=== PATIENT | female | born 1970 | race Caucasian/White ===

== ENCOUNTER → 2016-05-15 | Outpatient (CLI) | payer BC ==
[~2016-05-15] MED LIST: ASPI-390 PO; FLUT0.15 NAE; LRT5 PO; NAPR1TAB9 PO
--- NOTE | 2016-05-15 20:44 | DIAGNOSTIC IMAGING REPORT ---
PELVIC ULTRASOUND, TRANSABDOMINAL HISTORY: Generalized abdominal pain. Abnormal menstruation. COMPARISON: None. FINDINGS: Uterus: 9.8 x 4.4 x 6.2 cm. Within the right side of the uterus there is a 4.9 x 3.8 x 3.8 cm heterogeneous subserosal mass. This favors a fibroid. Endometrial stripe: 5 mm in thickness. Right ovary: There is a 3.4 cm exophytic cyst which appears to connect to the right ovary. Left ovary: Normal in size and demonstrates normal color flow. Miscellaneous:No pelvic free fluid. IMPRESSION: 1. Suboptimal examination as the patient deferred transvaginal scanning. 2. A 4.9 x 3.8 x 3.8 cm heterogeneous subserosal mass along the right side of the uterus. This favors a fibroid. 3. There appears to be 3.4 cm cyst within the right ovary which also abuts the right-sided fibroid. Recommend follow-up pelvic ultrasound in 6-8 weeks to ensure resolution. 4. Normal left ovary. Electronically signed by: Ariel Manzano M.D. 05/15/2016 8:43 PM Dictated Date/Time: 05/15/2016 8:38 PM
[2016-05-15 20:49] LABS: BASO % 0.4 %; BASO ABS # 0.04 K/uL (0-0.2); EOS % 1.1 %; HEMATOCRIT 39.1 % (37-47); IG% 0.2 %; LYMPH % 30.7 %; LYMPH ABS # 3.14 K/uL (1.2-3.4); MEAN CELL VOLUME 88.1 fL (80-100); MEAN CORPUSCULAR HEMOGLOBIN 31.1 pg (25-34); MEAN PLATELET VOLUME 9.4 fL (7.4-10.4); MONO % 8.3 %; NEUT % 59.3 %; PLATELET COUNT 203 K/uL (130-400); RED BLOOD COUNT 4.44 M/uL (4.2-5.4); WHITE BLOOD COUNT 10.22 K/uL (4.8-10.8)
[2016-05-15 20:55] LABS: URINE APPEARANCE CLEAR (CLEAR); URINE BILIRUBIN NEG (NEG); URINE COLOR YELLOW; URINE NITRITE NEG (NEG); URINE PH 7.5 (4.5-7.5); URINE SPECIFIC GRAVITY 1.012 (1.000-1.030); UROBILINOGEN NEG (NEG)
[2016-05-15 20:57] LABS: COMPLETE YES; MEAN CORPUSCULAR HGB CONC 35.3 g/dl (32-36)
[2016-05-15 21:00] LABS: MANUAL MICROSCOPIC REQUIRED? NO; REVIEW REQ? NO
[2016-05-15 21:15] LABS: BLOOD UREA NITROGEN 16 mg/dl (7-18); BUN/CREATININE RATIO 19.9 (10-20); CALCIUM 8.9 mg/dl (8.5-10.1); CARBON DIOXIDE 24 mmol/L (21-32); CHLORIDE 106 mmol/L (98-107); CREATININE 0.78 mg/dl (0.60-1.20); GLUCOSE 89 mg/dl (70-99); POTASSIUM 4.5 mmol/L (3.5-5.1); SODIUM 140 mmol/L (136-145)
--- NOTE | 2016-05-15 21:17 | DIAGNOSTIC IMAGING REPORT ---
APPENDIX ULTRASOUND HISTORY: Generalized abdominal PAIN, SWELLING, ABNORMAL MENSES COMPARISON: None. FINDINGS: Transabdominal scanning of the right lower quadrant was performed. The appendix was not identified. There are no fluid collections or masses within the right lower quadrant. IMPRESSION: The appendix was not identified. Electronically signed by: Ariel Manzano M.D. 05/15/2016 9:16 PM Dictated Date/Time: 05/15/2016 9:15 PM
[2016-05-15 21:25] LABS: RATIO 9.5 mcg/mg (0-30.0)
== END | disposition home or self-care (01) ==
LOC: C.ULTR 19:25
PROVIDERS: ATTEND Nurse Practitioner Family
DX: R10.31 Right lower quadrant pain (principal); N92.6 Irregular menstruation, unspecified; R60.9 Edema, unspecified; R19.09 Other intra-abdominal and pelvic swelling, mass and lump; N83.201 Unspecified ovarian cyst, right side

== ENCOUNTER 2016-10-14 22:29 | Emergency (ER) | payer BC ==
[~2016-10-14] VITALS: Ht 170.2 cm; Wt 92.1 kg
[~2016-10-14 22:29] MED LIST changes: -ASPI-390 PO; -FLUT0.15 NAE; -NAPR1TAB9 PO
[2016-10-14 22:32] VITALS: TEMP 36.7; Ht 170.2 cm; Wt 92.1 kg
[2016-10-14 22:51] VITALS: O2SAT 98
[2016-10-14] MEDS ORDERED: NAPR1TAB9 PO (22:59)
[2016-10-14] MEDS ORDERED: FLUT0.15 NAE (22:59)
[2016-10-14] MEDS ORDERED: ASPI-390 PO (22:59)
[2016-10-14 23:38] LABS: HEMATOCRIT 40.7 % (37-47); MEAN CELL VOLUME 89.8 fL (80-100); MEAN CORPUSCULAR HEMOGLOBIN 30.5 pg (25-34); MEAN CORPUSCULAR HGB CONC 33.9 g/dl (32-36); PLATELET COUNT 200 K/uL (130-400); RED BLOOD COUNT 4.53 M/uL (4.2-5.4); WHITE BLOOD COUNT 7.46 K/uL (4.8-10.8)
[2016-10-14] MEDS ORDERED: ASPIRIN 81 MG CHEW PO STA (23:44)
[2016-10-14 23:50] LABS: PROTHROMBIN TIME (PATIENT) 10.2 SECONDS (9.0-12.0)
[2016-10-15 00:05] LABS: ALT/SGPT 24 U/L (12-78); AST/SGOT 14 U/L (15-37); BLOOD UREA NITROGEN 13 mg/dl (7-18); BUN/CREATININE RATIO 12.6 (10-20); CALCIUM 8.5 mg/dl (8.5-10.1); CARBON DIOXIDE 28 mmol/L (21-32); CHLORIDE 108 mmol/L (98-107); GLUCOSE 106 mg/dl (70-99); POTASSIUM 3.7 mmol/L (3.5-5.1); SODIUM 142 mmol/L (136-145)
[2016-10-15 00:09] LABS: ALB/GLOB RATIO 1.2 (0.9-2); ALKALINE PHOSPHATASE 90 U/L (45-117)
[2016-10-15 02:14] VITALS: BP 120/76; PULSE 64; O2SAT 97
--- NOTE | 2016-10-15 02:25 | EMERGENCY ROOM VISIT NOTE ---
History Report prepared by Angella: Celeste Sierra Under the Supervision of: Dr. Kinjal Hobbs M.D. First contact with patient: 23:12 Chief Complaint: CHEST PAIN Stated Complaint: PAIN IN LEFT ARM, SHARP PAIN IN CHEST Nursing Triage Summary: Sharp pains retrosternal starting 2100 hours, left wrist/hand/arm started feeling numb. Denies dyspnea, nausea, dizziness. Chest pain is exacerbated with palpation, denies injury. Family cardiac history, no current personal cardiac history. History of Present Illness The patient is a 46 year old female who presents to the Emergency Room with complaints of persistent chest pain starting 2100 today. The patient was sitting on her couch petting her cat when she had a sudden pain in her chest. She then started having some numbness in her left arm down to her hands. She then had another sharp intense pain in her chest. She has never experienced this before. She currently feels a dull pressure in her chest. She denies any nausea or diaphoresis with the chest pain. She denies any new back pain. The pain did not worsen with exertion. She has a history of back pain for which she sees a chiropractor. Her last chiropractic appointment was 1 month ago. She has not taken any aspirin. Her father had a heart attack and CABG when he was 55. She denies any history of AL in her siblings or mother. She denies any history of blood clots or other medical issues. She traveled to [place] in August. She denies any hormone use or smoking. Source of History: patient Onset: 2099 today Position: chest Quality: sharp Timing: other (persistent) Associated Symptoms: + numbness, No diaphoresis, No nausea, No back pain Review of Systems See HPI for pertinent positives & negatives. A total of 10 systems reviewed and were otherwise negative. Past Medical & Surgical Medical Problems: (1) No chronic problems Family History Cancer Heart disease Hypertension Seizures Social History Smoking Status: Never Smoker Occupation Status: employed Current/Historical Medications Scheduled Esiwgpw-Rotywqvqohtvt-Iklcxars (Excedrin Migraine), 1 TAB PO PRN UD Fluticasone Propionate (Nasal) (Flonase Allergy Relief), 2 SPRAYS TSERING DAILY Scheduled PRN Naproxen (Aleve), 2 TAB PO DAILY PRN for Pain Allergies Coded Allergies: Miconazole (Verified Adverse Reaction, Severe, BURNING, 10/14/16) Physical Exam Vital Signs Date Time Temp Pulse Resp B/P (MAP) Pulse Ox O2 Delivery O2 Flow Rate FiO2 10/15/16 02:14 64 17 120/76 97 10/15/16 01:59 64 17 120/76 97 10/15/16 01:29 69 18 124/73 96 10/15/16 00:59 65 14 130/79 96 10/15/16 00:29 73 17 126/83 96 10/14/16 23:55 76 21 143/91 97 10/14/16 22:55 79 10/14/16 22:51 98 Room Air 10/14/16 22:51 98 Room Air 10/14/16 22:32 36.7 79 18 189/97 99 Room Air Physical Exam Vital signs reviewed. General: Well-appearing female, in no significant distress. HEENT: No scleral icterus, PERRLA, neck supple. Atraumatic. Cardiovascular: Regular rate and rhythm, no extra sounds. Pulmonary: Clear to auscultation bilaterally, normal work of breathing. Abdomen: Soft, nontender, nondistended, positive bowel sounds. Musculoskeletal: Atraumatic, no peripheral edema. Neurologic: Patient awake alert and oriented x 3, full strength in all 4 extremities. Cranial nerves 2 through 12 grossly intact. Skin: Warm, dry, no rash Medical Decision & Procedures ER Provider Diagnostic Interpretation: X-ray results as stated below per interpretation by me: Chest X-ray: Normal mediastinal silhouette, no pneumothorax, no focal infiltrate, no failure. Laboratory Results 10/14/16 23:15 10/14/16 23:15 Test 10/14/16 23:15 10/15/16 01:23 Red Blood Count 4.53 M/uL (4.2-5.4) Mean Corpuscular Volume 89.8 fL (80-100) Mean Corpuscular Hemoglobin 30.5 pg (25-34) Mean Corpuscular Hemoglobin Concent 33.9 g/dl (32-36) RDW Standard Deviation 42.0 fL (36.4-46.3) RDW Coefficient of Variation 12.8 % (11.5-14.5) Mean Platelet Volume 10.0 fL (7.4-10.4) Prothrombin Time 10.2 SECONDS (9.0-12.0) Prothromb Time International Ratio 1.0 (0.9-1.1) Activated Partial Thromboplast Time 27.2 SECONDS (21.0-31.0) Partial Thromboplastin Ratio 1.0 Anion Gap 6.0 mmol/L (3-11) Est Creatinine Clear Calc Drug Dose 81.9 ml/min Estimated GFR () 78.2 Estimated GFR (Non- 67.5 BUN/Creatinine Ratio 12.6 (10-20) Calcium Level 8.5 mg/dl (8.5-10.1) Total Bilirubin 0.3 mg/dl (0.2-1) Aspartate Amino Transf (AST/SGOT) 14 U/L (15-37) Alanine Aminotransferase (ALT/SGPT) 24 U/L (12-78) Alkaline Phosphatase 90 U/L (45-117) Total Creatine Kinase 69 U/L (26-192) Creatine Kinase MB < 0.5 ng/ml (0.5-3.6) Creatine Kinase MB Ratio (0-3.0) Total Protein 7.1 gm/dl (6.4-8.2) Albumin 3.9 gm/dl (3.4-5.0) Globulin 3.2 gm/dl (2.5-4.0) Albumin/Globulin Ratio 1.2 (0.9-2) Bedside Troponin I < 0.030 ng/ml (0-0.045) Laboratory results per my review. Medications Administered Medications (Trade) Dose Ordered Sig/Cathleen Route Start Time Stop Time Status Last Admin Dose Admin Aspirin (Aspirin Chew) 324 mg NOW STAT PO 10/14/16 23:44 10/14/16 23:45 DC 10/14/16 23:54 324 MG ECG Indication: chest pain Rate (beats per minute): 84 Rhythm: normal sinus Findings: no acute ischemic change, other (left atrial enlargement, likely previous anterior infarct) ED Course 2317: Past medical records reviewed. The patient was evaluated in room B4B. A complete history and physical examination was performed. 2344: Aspirin 324 mg PO. 0201: Upon reevaluation, the patient appeared to have improvement of her symptoms. I discussed findings with her. She verbalized agreement of the treatment plan. She was discharged home. Medical Decision Differential diagnosis: Acute coronary syndrome, pulmonary embolus, aortic dissection, musculoskeletal pain, pneumonia, pleural effusion, pneumothorax This patient was evaluated and appeared to be in no significant distress. Patient was given 324 mg of aspirin to chew. Chest x-ray reveals no focal findings. EKG reveals no evidence of acute ischemia. Patient's cardiac enzymes and d-dimer are normal. Troponin was repeated and is negative once again. The patient was informed of the findings. She was asked to follow-up with her PCP this week for reevaluation and likely further cardiac evaluation. She will return to the ER for worsening of symptoms or any medical concerns. Medication Reconcilliation Current Medication List: was personally reviewed by me Blood Pressure Screening Patient's blood pressure: Normal blood pressure Blood pressure disposition: Did not require urgent referral Impression Primary Impression: Chest pain radiating to arm Additional Impression: Substernal chest pain Scribe Attestation The scribe's documentation has been prepared under my direction and personally reviewed by me in its entirety. I confirm that the note above accurately reflects all work, treatment, procedures, and medical decision making performed by me. Departure Information Dispostion Home / Self-Care Referrals Leena Mark (PCP) Forms HOME CARE DOCUMENTATION FORM, IMPORTANT VISIT INFORMATION Patient Instructions My [facility] Additional Instructions Diagnosis: Chest pain Aspirin 81 mg daily. Continue your other medications as prescribed. Follow-up with your PCP within the next 2-3 days for reevaluation and consideration of further cardiac testing. Return to the ER for worsening of symptoms or any medical concerns. Problem Qualifiers
--- NOTE | 2016-10-15 06:37 | DIAGNOSTIC IMAGING REPORT ---
CHEST ONE VIEW PORTABLE HISTORY: 46 years-old Female acute chest pain COMPARISON: None available TECHNIQUE: Portable upright AP view of the chest FINDINGS: Cardiomediastinal and hilar silhouettes are within normal limits. No pneumothorax, pleural effusion or focal airspace consolidation. The bones are grossly intact. IMPRESSION: No acute cardiopulmonary process. The above report was generated using voice recognition software. It may contain grammatical, syntax or spelling errors. Electronically signed by: Rk Stover M.D. 10/15/2016 6:35 AM Dictated Date/Time: 10/15/2016 6:35 AM
== END 2016-10-15 02:16 | disposition home or self-care (01) ==
LOC: C.EDB 22:31
DX: R07.2 Precordial pain (principal); Z80.9 Family history of malignant neoplasm, unspecified; Z82.49 Family history of ischemic heart disease and other diseases of the circulatory system

== ENCOUNTER 2017-05-04 03:14 | Emergency (ER) | payer BC, OTHER ==
[~2017-05-04] VITALS: Ht 170.2 cm; Wt 92.2 kg
[~2017-05-04 03:14] MED LIST changes: +ASPI-390 PO; +FLUT0.15 NAE; -LRT5 PO; +NAPR1TAB9 PO
[2017-05-04 03:18] VITALS: TEMP 37; Ht 170.2 cm; Wt 92.2 kg
[2017-05-04] MEDS ORDERED: MULT-506 PO (03:39)
[2017-05-04] MEDS ORDERED: AMOX875T PO (03:44)
[2017-05-04] MEDS ORDERED: PRED50TA PO (03:44)
[2017-05-04] MEDS ORDERED: AMOXICIL/CLAVU 875MG HOME PACK PO ONE (03:45)
[2017-05-04] MEDS ORDERED: DEXAMETHASONE **PF** INJ 10 MG/ML VIAL PO ONE (03:45)
[2017-05-04 03:58] VITALS: BP 154/91; PULSE 70; O2SAT 97
--- NOTE | 2017-05-04 04:00 | EMERGENCY ROOM VISIT NOTE ---
History First contact with patient: 03:21 Chief Complaint: SORETHROAT Stated Complaint: SWOLLEN THROAT History of Present Illness The patient is a 47 year old female who presents to the Emergency Room with complaints of sore throat and swelling to her uvula for the past day has had a cold for the past week. No new food soaps or detergents. No new medications. Patient denies chest pain, dyspnea, neck stiffness, dysphagia, fevers, headache , abdominal pain, earache, weakness. Patient is tolerating p.o. fluids and food. Review of Systems An 10 system review of systems was completed with positives and pertinent negatives listed in the HPI. Past Medical/Surgical History Medical Problems: (1) No chronic problems Family History Cancer Heart disease Hypertension Seizures Social History Smoking Status: Never Smoker Smokeless Tobacco Use: No Drug Use: none Marital Status: single Housing Status: lives alone Occupation Status: employed Current/Historical Medications Scheduled Amoxicillin & Pot Clavulanate (Augmentin 875-125 mg), 1 TAB PO BID Multivitamin (Multivitamin), 1 TAB PO DAILY Prednisone (Prednisone), 50 MG PO DAILY Physical Exam Vital Signs Date Time Temp Pulse Resp B/P (MAP) Pulse Ox O2 Delivery O2 Flow Rate FiO2 05/04/17 03:18 37.0 75 18 167/108 98 Room Air Physical Exam VITALS: Vitals are noted on the nurse's note and reviewed by myself. Vital signs hypertensive. GENERAL: Pleasant female speaking in full sentences, in no acute distress, nondiaphoretic, well-developed well-nourished. SKIN: The skin was without rashes, erythema, edema, or bruising. There is no tenting of the skin. Capillary reflex less than 2 seconds. HEAD: Normocephalic atraumatic. EARS: External auditory canals clear, tympanic membranes pearly islas without erythema or effusion bilaterally. EYES: Pupils equal round and reactive to light and accommodation. Conjunctivae without injection, sclerae without icterus. Extraocular movements intact. NOSE: Patent, turbinates without inflammation or discharge. No sinus tenderness. MOUTH: Mucous membranes moist. Pharynx with erythema without exudate. Uvula midline that is erythematous and edematous concern of uvulitis. Airway patent. Tongue does not deviate. No signs of airway compromise NECK: Supple without nuchal rigidity. No lymphadenopathy. No thyromegaly. Cervical spine is nontender. No JVD. HEART: Regular rate and rhythm without murmurs gallops or rubs. LUNGS: Clear to auscultation bilaterally without wheezes, rales or rhonchi. No dullness to percussion. No retractions or accessory muscle use. ABDOMEN: Positive bowel sounds x 4. Normal tympanic percussion. Soft, nontender, without masses or organomegaly. Fitzpatrick sign negative. No guarding or rebound tenderness. MUSCULOSKELETAL: No muscle atrophy, erythema, or edema noted. NEURO: Patient was alert and oriented to person place and time. Normal sensation to light and sharp touch. No focal neurological deficits. Medical Decision & Procedures Medications Administered Medications (Trade) Dose Ordered Sig/Cathleen Route Start Time Stop Time Status Last Admin Dose Admin Dexamethasone Sodium Phosphate (Dexamethasone Inj Pf) 10 mg NOW ONCE PO 05/04/17 03:45 05/04/17 03:46 05/04/17 03:40 10 MG Amoxicillin/ Clavulanate Potassium (Augmentin 875MG Home Pack) 1 homepack UD ONCE PO 05/04/17 03:45 05/04/17 03:46 05/04/17 03:40 1 HOMEPACK ED Course Prior records/ancillary studies reviewed. Triage Nursing notes reviewed. The patient's history was concerning for a sore throat. Differential diagnosis: Etiologies such as uvulitis, viral syndrome, tonsillitis, streptococcal pharyngitis, mononucleosis, peritonsillar abscess, retropharyngeal abscess, otitis, pneumonia, influenza, as well as others were entertained. ER treatment provided: Decadron, Augmentin On reassessment the patient felt better. Diagnostics interpreted by me: Deferred This appears to be consistent with uvulitis. Patient had no signs of airway compromise. No signs of abscess. No signs of meningitis. No Reji angina. Patient was able to tolerate p.o. fluids and ambulate without difficulties. She has stable vital signs. She is advised to take medications as directed, rest, stay well hydrated and follow-up follow-up in clinic in a few days or here in the ER sooner for high fevers, difficulty swallowing, neck stiffness, worsening signs or symptoms or as needed. By the evaluation outlined above emergent etiologies such as peritonsillar abscess, retropharyngeal abscess, otitis, pneumonia, meningitis, urinary tract infection, sepsis, bacteremia, as well as others were deemed relatively unlikely. The pt informed about the findings as listed above. All questions were answered and pleased with the treatment. Return instructions were outlined and the patient was discharged in stable condition. Outpatient prescription management: Augmentin, prednisone Referral: The patient was referred back to their primary care physician for follow-up in 2 to 3 days for a recheck of the current condition. Medical Decision As above Medication Reconcilliation Current Medication List: was personally reviewed by me Blood Pressure Screening Patient's blood pressure: Elevated blood pressure Blood pressure disposition: Elevated BP felt to be situational Impression Primary Impression: Uvulitis Departure Information Dispostion Home / Self-Care Condition GOOD Prescriptions Prednisone (Prednisone) 50 Mg Tab 50 MG PO DAILY for 4 Days, #4 TAB Prov: Rosette Mejia PA-C 05/04/17 Amoxicillin & Pot Clavulanate (Augmentin 875-125 mg) 1 Tab Tab 1 TAB PO BID for 9 Days, #18 TAB Prov: Rosette Mejia PA-C 05/04/17 Forms HOME CARE DOCUMENTATION FORM, Work Instructions, Return To Work: 2 days IMPORTANT VISIT INFORMATION Patient Instructions [facility], ED Uvulitis Additional Instructions Prednisone 50mg: Once daily until the prescription is finished. It is best to take this earlier in the day as some patients note occasional difficulty falling asleep when taken in the late evening. Augmentin 875mg: Take one tablet twice a day for 10 days. All antibiotics can cause diarrhea. If this occurs and you feel worse or it does not resolve in 1- 2 days follow up with your doctor or return to the Emergency Department as this could be signs of serious underlying problems. Any medication can cause an allergic reaction, stop the pills immediately and return to the ER for rash, hives, breathing difficulties, or swelling. If the diarrhea occurs, you can try probiotics. Recommend yogurt with live cultures with antibiotics. Acetaminophen(Tylenol) may be used for fever or pain. Use 1000mg every six hours as needed. Avoid using more than 3000mg in a 24 hour period. (AND/OR) Ibuprofen(Motrin, Advil) may be used for fever or pain. Use 600mg every six hours as needed. Take with food. Avoid using more than 2400mg in a 24 hour period. Do not use 2400mg per day for more than three consecutive days without physician direction. Prolonged inappropriate use can lead to stomach upset or ulcers. Afrin nasal spray: 2-3 sprays to each nostril twice daily as needed for congestion. Do not use for more than 3-4 days because it can lead to worsening rebound congestion. Pseudoephedrine(Sudaphed): 30-60mg every 6 hours as needed for nasal congestion. Do not take this with other stimulant products or supplements. Rest and drink plenty of fluids. Controlling your fever with Tylenol and Ibuprofen as above will make you feel better. Wash your hands after nose blowing, sneezing, or coughing. Most germs are spread through contact, therefore improper hygiene may result in your close contacts and loved ones becoming ill just like you. Continue current medications. Return to the ER for severe headache, neck stiffness, chest pain, difficulty breathing, fevers, vomiting, worsening of your condition, or as needed. Follow up with your primary physician this week for a recheck of your current condition. Work Instructions Return To Work: 2 days
== END 2017-05-04 03:59 | disposition home or self-care (01) ==
LOC: C.EDB 03:15
DX: K12.2 Cellulitis and abscess of mouth (principal); Z82.49 Family history of ischemic heart disease and other diseases of the circulatory system; Z82.0 Family history of epilepsy and other diseases of the nervous system